=== PATIENT | male | born 1990 | race African-American/Black ===

== ENCOUNTER 2016-07-29 05:44 | Emergency (ER) | payer BC ==
[~2016-07-29] VITALS: Ht 167.6 cm; Wt 59.0 kg
[~2016-07-29 05:44] MED LIST: BACTRIM DS TAB1 EACH PO; FLAGYL500 MG PO; FLEXERIL PO; HYDROCODONE-AP1 EAC6 PO; TORADOL 10 MG T10 MG PO
[2016-07-29 05:46] VITALS: BP 121/85
== END 2016-07-29 06:24 | disposition home or self-care (01) ==
LOC: ER 05:44
DX: F41.9 Anxiety disorder, unspecified (principal); F17.210 Nicotine dependence, cigarettes, uncomplicated